=== PATIENT | male | born 1990 | race Caucasian/White ===

== ENCOUNTER 2016-08-05 19:40 | Emergency (ER) | payer MEDICAID ==
[~2016-08-05] VITALS: Ht 180.3 cm; Wt 97.7 kg
[~2016-08-05 19:40] MED LIST: NOCURR
[2016-08-05 22:45] VITALS: BP 141/87
== END 2016-08-05 22:55 | disposition home or self-care (01) ==
LOC: EMS 19:51
DX: S62.304A Unspecified fracture of fourth metacarpal bone, right hand, initial encounter for closed fracture (principal); S62.636A Displaced fracture of distal phalanx of right little finger, initial encounter for closed fracture; F17.210 Nicotine dependence, cigarettes, uncomplicated; W22.8XXA Striking against or struck by other objects, initial encounter; Y93.89 Activity, other specified; Y92.89 Other specified places as the place of occurrence of the external cause; Y99.8 Other external cause status
CPT/HCPCS: 99284